=== PATIENT | female | born 1955 | race Caucasian/White ===

== ENCOUNTER 2023-05-24 15:17 | Outpatient (REF) | payer MEDICARE, MEDICAID, SELFPAY | END 2023-05-24 15:18 | disposition home or self-care (01) | LOC: LBN 15:17 | PROVIDERS: PCP Family Medicine; Visit Provider Physician Assistant | DX: S71.102A Unspecified open wound, left thigh, initial encounter (principal); B95.61 Methicillin susceptible Staphylococcus aureus infection as the cause of diseases classified elsewhere; B96.89 Other specified bacterial agents as the cause of diseases classified elsewhere; X58.XXXA Exposure to other specified factors, initial encounter | CPT/HCPCS: 87077; 87070; 87186; 87205 ==